=== PATIENT | female | born 1990 | race Two or more races ===

== ENCOUNTER 2021-03-19 13:30 | Inpatient (IN) | payer OTHER ==
[~2021-03-19] VITALS: Ht 167.6 cm; Wt 85.7 kg
[2021-04-02] MEDS ORDERED: PRENATAL TABLE1 EAC1 PO (11:23)
[2021-04-02] MEDS ORDERED: VITAMIN C500 M6 PO (11:23)
[2021-04-02] MEDS ORDERED: TOPROL XL100 M1 PO (11:26)
== END 2021-04-04 12:12 | disposition home or self-care (01) | DRG 768 ==
LOC: OB/GYN 04-02 10:45 → LDR 04-02 10:45 → OB/GYN 04-02 15:47
PROVIDERS: ADMIT Obstetrics & Gynecology Maternal & Fetal Medicine; ATTEND Obstetrics & Gynecology Maternal & Fetal Medicine
PROC: 10E0XZZ Delivery of Products of Conception, External Approach (ICD-10-PCS; principal; 2021-04-02)
PROC: 0DQP0ZZ Repair Rectum, Open Approach (ICD-10-PCS; 2021-04-02)
PROC: 10907ZC Drainage of Amniotic Fluid, Therapeutic from Products of Conception, Via Natural or Artificial Opening (ICD-10-PCS; 2021-04-02)
PROC: 4A1HXFZ Monitoring of Products of Conception, Cardiac Rhythm, External Approach (ICD-10-PCS; 2021-04-02)
DX: O70.3 Fourth degree perineal laceration during delivery (principal); Z37.0 Single live birth; Z3A.38 38 weeks gestation of pregnancy

== ENCOUNTER 2022-05-16 21:13 | Inpatient (IN) | payer OTHER ==
[~2022-05-16] VITALS: Ht 167.6 cm; Wt 90.7 kg
[~2022-05-16 21:13] MED LIST: PRENATAL TABLE1 EAC1 PO; TOPROL XL100 M1 PO; VITAMIN C500 M6 PO
== END 2022-05-18 11:34 | disposition home or self-care (01) | DRG 807 ==
LOC: LDR 21:13 → OB/GYN 05-17 00:19
PROVIDERS: ADMIT Obstetrics & Gynecology; ATTEND Obstetrics & Gynecology
PROC: 10E0XZZ Delivery of Products of Conception, External Approach (ICD-10-PCS; principal; 2022-05-16)
PROC: 0KQM0ZZ Repair Perineum Muscle, Open Approach (ICD-10-PCS; 2022-05-16)
PROC: 4A1HXCZ Monitoring of Products of Conception, Cardiac Rate, External Approach (ICD-10-PCS; 2022-05-16)
DX: O70.1 Second degree perineal laceration during delivery (principal); Z37.0 Single live birth; Z3A.37 37 weeks gestation of pregnancy; Z20.822 Contact with and (suspected) exposure to COVID-19